=== PATIENT | male | born 1980 | race Caucasian/White ===

== ENCOUNTER 2019-06-16 21:01 | Inpatient (IN) ==
[2019-06-16] MEDS ORDERED: SODIUM CHLORIDE 0.9% 1000ML 2,000 ML IV ONE (21:09)
[2019-06-16] MEDS ORDERED: ONDANSETRON INJ 2 MG/ML 2 ML VIAL IV STA (21:16)
[2019-06-16 21:38] LABS: Basophils # (auto) 0.01 K/uL (0-0.2); Basophils % (auto) 0.1 %; Eosinophils # (auto) 0.02 K/uL (0-0.5); Eosinophils % (auto) 0.1 %; Hematocrit (blood only) 46.8 % (42-52); Immature Granulocytes # (auto) 0.06 K/uL (0.00-0.02); Immature Granulocytes % (auto) 0.3 %; Lymphocytes # (auto) 1.05 K/uL (1.2-3.4); Lymphocytes % (auto) 5.6 %; Mean Corpuscular Hemoglobin 29.8 pg (25-34); Mean Corpuscular Hgb Conc 34.2 g/dL (32-36); Mean Corpuscular Volume 87.2 fL (80-100); Mean Platelet Volume 9.9 fL (7.4-10.4); Monocytes # (auto) 1.01 K/uL (0.11-0.59); Monocytes % (auto) 5.4 %; Neutrophils # (auto) 16.63 K/uL (1.4-6.5); Neutrophils % (auto) 88.5 %; Platelet Count 277 K/uL (130-400); RDW Standard Deviation 44.5 fL (36.4-46.3); Red Blood Count 5.37 M/uL (4.7-6.1); White Blood Count 18.78 K/uL (4.8-10.8)
--- NOTE | 2019-06-16 21:38 | Emergency Department Note ---
Entered by Sandra Petersen acting as a scribe for History of Present Illness General Chief complaint: Hyperglycemia Stated complaint: UPSET STOMACH, DEHYDRATED, NAUSEA, 420 BLOOD SUGAR Time Seen by Provider: 06/16/19 21:09 Source: patient History of Present Illness Onset (ago): hour(s) (this morning) Location: head, upper extremity and lower extremity Pain Consistency: + other (episode) Maximum Pain Intensity: 8 Quality: + other (hyperglycemia) Associated symptoms: + other (Positive blood sugar of 420, dehydration, upset stomach. Negative urinary symptoms. ); no shortness of breath The patient is a 38 year old male who presents to the ED with complaints of hyperglycemia beginning this morning. He reports he took his blood sugar earlier today and it was 420. He notes he has nausea, vomiting and an upset stomach. The patient reports he feels dehydrated but denies any urinary symptoms or SOB. Home Medications Home Medications Medication Instructions Recorded Confirmed Type insulin NPH and regular human 20 unit SUBCUT BID 06/16/19 06/16/19 History [Novolin 70/30 U-100 Insulin] Allergies Allergy/AdvReac Type Severity Reaction Status Date / Time No Known Allergies Allergy Unverified 06/16/19 23:34 Past Med/Surg History Medical History (Updated 06/17/19 @ 04:09 by John Trujillo MD) Diabetes mellitus (Chronic) Surgical History No pertinent past surgical history Family History Other No pertinent family history in first degree relatives Social History Preferred Language: Maltese Communication Ability: Effective [employer] Required: No Beliefs That Will Affect Care: None Current Living Situation: Family Current Living Situation Comment: Lives with father Other Information That Helps Us Care for You: No Feels Safe at Home: Yes Safety Concerns: Feels Safe At This Time Smoking Status: Current every day smoker Tobacco Type: cigarettes ; Cigarettes Per Day: 1 PPD ; Do You Dip or Chew Tobacco: No ; Second Hand Exposure: Yes ; Tobacco Cessation Education Requested by Patient: No Hx Alcohol Use: Yes Alcohol type: beer Hx Substance Use: No Review of Systems See HPI for pertinent positives & negatives. and A total of 10 systems reviewed and were otherwise negative Physical Exam Vital Signs Vital Signs - 24 hr 06/16/19 21:04 06/16/19 21:29 06/16/19 21:32 Temperature 36.5 C Temperature Source Oral Pulse Rate 88 82 Pulse Rate [Apical] 107 H Pulse Rate from SpO2 Sensor Pulse Rhythm Regular Pulse Rhythm [Apical] Regular Respiratory Rate 20 18 24 Respiratory Effort / Characteristics Non-Labored Spontaneous Respiratory Depth Normal Shallow Respiratory Pattern Regular Blood Pressure 79/56 L 99/59 L Blood Pressure [Right Arm] Blood Pressure Mean 63 72 Blood Pressure Mean [Right Arm] Blood Pressure Position Sitting Pulse Oximetry 95 95 Oxygen Delivery Method Room Air Room Air Sepsis Recent Fever Within 48 Hours No Sepsis New/Unexplained Change in Mental Status No Sepsis Action Taken by Nursing No Action Required 06/16/19 21:40 06/16/19 22:00 06/16/19 22:01 Temperature Temperature Source Pulse Rate 71 83 80 Pulse Rate [Apical] 88 Pulse Rate from SpO2 Sensor Pulse Rhythm Pulse Rhythm [Apical] Regular Respiratory Rate 24 28 H 23 Respiratory Effort / Characteristics Non-Labored Spontaneous Respiratory Depth Normal Respiratory Pattern Regular Blood Pressure 99/59 L Blood Pressure [Right Arm] 99/59 L Blood Pressure Mean 68 Blood Pressure Mean [Right Arm] 72 Blood Pressure Position Pulse Oximetry Oxygen Delivery Method Sepsis Recent Fever Within 48 Hours Sepsis New/Unexplained Change in Mental Status Sepsis Action Taken by Nursing 06/16/19 22:30 06/16/19 22:37 06/16/19 23:00 Temperature Temperature Source Pulse Rate 90 77 67 Pulse Rate [Apical] Pulse Rate from SpO2 Sensor 72 Pulse Rhythm Pulse Rhythm [Apical] Respiratory Rate 17 15 24 Respiratory Effort / Characteristics Respiratory Depth Respiratory Pattern Blood Pressure 103/41 L 119/60 Blood Pressure [Right Arm] Blood Pressure Mean 71 74 Blood Pressure Mean [Right Arm] Blood Pressure Position Pulse Oximetry 98 Oxygen Delivery Method Sepsis Recent Fever Within 48 Hours Sepsis New/Unexplained Change in Mental Status Sepsis Action Taken by Nursing 06/16/19 23:20 06/16/19 23:30 Temperature Temperature Source Pulse Rate 78 78 Pulse Rate [Apical] Pulse Rate from SpO2 Sensor 77 Pulse Rhythm Pulse Rhythm [Apical] Respiratory Rate 19 Respiratory Effort / Characteristics Respiratory Depth Respiratory Pattern Blood Pressure Blood Pressure [Right Arm] Blood Pressure Mean Blood Pressure Mean [Right Arm] Blood Pressure Position Pulse Oximetry 96 Oxygen Delivery Method Sepsis Recent Fever Within 48 Hours Sepsis New/Unexplained Change in Mental Status Sepsis Action Taken by Nursing GENERAL: Patient is awake alert in no acute distress patient is resting comfortably and showing no signs of anxiety EYES: The conjunctivae are clear. The pupils are round and reactive. EARS, NOSE, MOUTH AND THROAT: The nose is without any evidence of any deformity. Mucous membranes are dry. NECK: The neck is nontender and supple. RESPIRATORY: Normal respiratory effort is noted there is no evidence of wheezing rhonchi or rales CARDIOVASCULAR: Tachycardic rate with regular rhythm was noted. GASTROINTESTINAL: The abdomen is mildly distended but soft. There was diffuse tenderness to palpation but no guarding or rigidity. MUSCULOSKELETAL/EXTREMITIES: There is no evidence of gross deformity full range of motion is noted in the hips and shoulders. SKIN: There is no obvious evidence of any rash. Skin was warm and dry. NEUROLOGIC: Patient is awake alert and oriented x3. Course Course 2114: Past medical records reviewed. The patient was evaluated in room B12. A complete history and physical exam was performed. 4: Discussed the patient's case with Dr. Perez, [facility]. The patient will be evaluated for further management. Administered Medications Dextrose (Dextrose 50%) 25 - 50 ml IV UD PRN; Protocol PRN Reason: Hypoglycemia Protocol Stop: 07/17/19 04:15 Last Admin: 06/17/19 04:05 Dose: 25 ml Documented by: [id number] Enoxaparin Sodium (Lovenox) 30 mg SQ QAM [facility] Stop: 07/17/19 08:59 Last Admin: 06/17/19 08:41 Dose: Not Given Documented by: [id number] Insulin Aspart ([facility]olog Flexpen) [facility]; Protocol Stop: 07/17/19 08:44 Last Admin: 06/17/19 17:36 Dose: 4 units Documented by: [id number] Cosigned by: [id number] Admin: 06/17/19 11:45 Dose: 8 units Documented by: [id number] Cosigned by: [id number] Admin: 06/17/19 11:36 Dose: 7 units Documented by: [id number] Cosigned by: [id number] Admin: 06/17/19 09:41 Dose: 6 units Documented by: [id number] Cosigned by: [id number] Insulin Human NPH (Novolin N Nph) 14 units SC BIDM [facility]; Protocol Stop: 07/17/19 08:29 Last Admin: 06/17/19 17:37 Dose: 14 units Documented by: [id number] Cosigned by: [id number] Admin: 06/17/19 08:41 Dose: 14 units Documented by: [id number] Cosigned by: [id number] Ioversol (Optiray 320 125ml) 125 ml IV ONCE PRN PRN Reason: Interaction Checking Stop: 06/21/19 00:18 Last Admin: 06/17/19 00:19 Dose: 117 ml Documented by: [id number] Discontinued Medications Dextrose (Dextrose 50%) Confirm Administered Dose 50 ml IV .STK-MED ONE Stop: 06/17/19 04:07 Last Admin: 06/17/19 04:44 Dose: Not Given Documented by: [id number] Sodium Chloride (Nss 1000ml) 2,000 mls @ 999 mls/hr IV .Q2H1M ONE Stop: 06/16/19 23:09 Last Infusion: 06/16/19 23:22 Dose: 0 mls/hr Documented by: [id number] Admin: 06/16/19 21:35 Dose: 999 mls/hr Documented by: [id number] Sodium Chloride (Nss 1000ml) 1,000 mls @ 999 mls/hr IV .Q1H1M ONE Stop: 06/16/19 23:21 Last Infusion: 06/16/19 23:42 Dose: 0 mls/hr Documented by: [id number] Admin: 06/16/19 22:50 Dose: 999 mls/hr Documented by: [id number] Insulin Human Regular 250 (units/ Sodium Chloride) 250 mls @ 2.1 mls/hr IV .Q24H CHARIS; Protocol Stop: 07/16/19 22:29 Last Titration: 06/17/19 08:04 Dose: 0 units/hr, 0 mls/hr Documented by: [id number] Cosigned by: [id number] Titration: 06/17/19 07:03 Dose: 2.1 units/hr, 2.1 mls/hr Documented by: [id number] Cosigned by: [id number] Titration: 06/17/19 05:59 Dose: 2.6 units/hr, 2.6 mls/hr Documented by: [id number] Cosigned by: [id number] Titration: 06/17/19 04:45 Dose: 2.6 units/hr, 2.6 mls/hr Documented by: [id number] Cosigned by: [id number] Titration: 06/17/19 04:00 Dose: 0 units/hr, 0 mls/hr Documented by: [id number] Cosigned by: [id number] Titration: 06/17/19 03:29 Dose: 4.3 units/hr, 4.3 mls/hr Documented by: [id number] Cosigned by: [id number] Titration: 06/17/19 02:52 Dose: 0 units/hr, 0 mls/hr Documented by: [id number] Cosigned by: [id number] Titration: 06/17/19 01:59 Dose: 7.2 units/hr, 7.2 mls/hr Documented by: [id number] Cosigned by: [id number] Titration: 06/17/19 01:10 Dose: 7.2 units/hr, 7.2 mls/hr Documented by: [id number] Cosigned by: [id number] Titration: 06/17/19 00:41 Dose: 7.2 units/hr, 7.2 mls/hr Documented by: [id number] Cosigned by: [id number] Admin: 06/16/19 23:02 Dose: 7.2 units/hr, 7.2 mls/hr Documented by: [id number] Cosigned by: [id number] Sodium Chloride (Nss 1000ml) 1,000 mls @ 200 mls/hr IV .Q5H CHARIS Stop: 07/17/19 00:49 Last Infusion: 06/17/19 04:54 Dose: 0 mls/hr Documented by: [id number] Infusion: 06/17/19 04:16 Dose: 0 mls/hr Documented by: [id number] Infusion: 06/17/19 03:38 Dose: 200 mls/hr Documented by: [id number] Admin: 06/17/19 01:15 Dose: 250 mls/hr Documented by: [id number] Cefoxitin Sodium 2,000 mg/ (Dextrose) 60 mls @ 100 mls/hr IV NOW STA Stop: 06/17/19 04:25 Last Admin: 06/17/19 04:53 Dose: Not Given Documented by: [id number] Dextrose/Sodium Chloride (D5w And Nss) 1,000 mls @ 100 mls/hr IV .Q10H CHARIS Stop: 07/17/19 04:29 Last Infusion: 06/17/19 08:49 Dose: 0 mls/hr Documented by: [id number] Admin: 06/17/19 04:05 Dose: 100 mls/hr Documented by: [id number] Magnesium Sulfate/Dextrose (Magnesium Sulfate / D5w) 1 gm in 100 mls @ 100 mls/hr IV ONE ONE Stop: 06/17/19 05:16 Last Infusion: 06/17/19 06:13 Dose: 0 mls/hr Documented by: [id number] Admin: 06/17/19 04:51 Dose: 100 mls/hr Documented by: [id number] Sodium Chloride (Nss 1000ml) 1,000 mls @ 100 mls/hr IV .Q10H CHARIS Stop: 06/17/19 18:29 Last Admin: 06/17/19 08:40 Dose: 100 mls/hr Documented by: [id number] Insulin Aspart (Novolog Flexpen) 0 units SC ACHS [facility]IS Stop: 07/17/19 07:29 Last Admin: 06/17/19 08:48 Dose: Not Given Documented by: [id number] Insulin Human Regular (Novolin R Bolus From Bag) 7 units IV ONE ONE Stop: 06/16/19 22:31 Last Admin: 06/16/19 23:02 Dose: 7 units Documented by: [id number] Cosigned by: [id number] Miscellaneous (Insulin Protocol Goal Range) 1 ea N/A ONE ONE Stop: 06/17/19 00:51 Last Admin: 06/17/19 00:59 Dose: 1 ea Documented by: [id number] Miscellaneous (Insulin Protocol Moderate Stress Level) 1 ea N/A ONE ONE Stop: 06/17/19 00:51 Last Admin: 06/17/19 00:59 Dose: Not Given Documented by: [id number] Ondansetron HCl (Zofran) 4 mg IV NOW STA Stop: 06/16/19 21:17 Last Admin: 06/16/19 21:35 Dose: 4 mg Documented by: [id number] Critical Care Time Critical Care Time: Yes Total Critical Care Time: 60 I have personally spent greater than 60 minutes of critical care time in the direct management of this patient. This includes bedside care, interpretation of diagnostic studies, and testing, discussion with consultants, patient, and family members, and other required patient management activities. This 60 minutes is in excess of all separately billable procedures. Medical Decision Making Differential Diagnosis Differential diagnosis: Etiologies such as metabolic, infection, hypo/hyperglycemia, electrolyte abnormalities, cardiac sources, intracerebral event, toxicologic, neurologic, as well as others were entertained. Medical Records Attestation: I reviewed the patient's medical records. Home Medications Current Medication List: was personally reviewed by me Laboratory Data Attestation: I reviewed the patient's lab results. Result diagrams: 06/17/19 05:19 06/17/19 05:19 Lab Results 06/16/19 06/16/19 06/16/19 Range/Units 21:07 21:24 21:24 WBC 18.78 H (4.8-10.8) K/uL RBC 5.37 (4.7-6.1) M/uL Hgb 16.0 (14.0-18.0) g/dL Hct 46.8 (42-52) % MCV 87.2 (80-100) fL MCH 29.8 (25-34) pg MCHC 34.2 (32-36) g/dL RDW Std Deviation 44.5 (36.4-46.3) fL RDW Coeff of Susy 14.0 (11.5-14.5) % Plt Count 277 (130-400) K/uL MPV 9.9 (7.4-10.4) fL Immature Gran % (Auto) 0.3 % Neut % (Auto) 88.5 % Lymph % (Auto) 5.6 % George % (Auto) 5.4 % Eos % (Auto) 0.1 % Baso % (Auto) 0.1 % Immature Gran # (Auto) 0.06 H (0.00-0.02) K/uL Neut # (Auto) 16.63 H (1.4-6.5) K/uL Lymph # (Auto) 1.05 L (1.2-3.4) K/uL George # (Auto) 1.01 H (0.11-0.59) K/uL Eos # (Auto) 0.02 (0-0.5) K/uL Baso # (Auto) 0.01 (0-0.2) K/uL PT 10.6 (9.0-12.0) Seconds INR 1.0 (0.9-1.1) APTT 21.9 (21.0-31.0) Seconds PTT Ratio 0.8 VBG pH (7.36-7.41) VBG pCO2 (38-50) mmHg VBG pO2 mmHg VBG HCO3 mmol/L VBG O2 Saturation % VBG Base Excess mEq/L Barometric Pressure mm/Hg Sodium (136-145) mmol/L Potassium (3.5-5.1) mmol/L Chloride (98-107) mmol/L Carbon Dioxide (21-32) mmol/L Anion Gap (3-11) BUN (7-18) mg/dl Creatinine (0.6-1.4) mg/dl Est Cr Clr Drug Dosing ml/min Est GFR ( Amer) Est GFR (Non-Af Amer) BUN/Creatinine Ratio (10-20) Glucose (70-99) mg/dl POC Glucose 421 H* (70-99) mg/dl Estimat Average Glucose mg/dl Hemoglobin A1c (4.5-5.6) % Lactate (0.4-2.0) mmol/L Calcium (8.5-10.1) mg/dl Magnesium (1.8-2.4) mg/dl Total Bilirubin (0.2-1) mg/dl AST (15-37) U/L ALT (12-78) U/L Alkaline Phosphatase (45-117) U/L Troponin I (0-0.045) ng/ml Total Protein (6.4-8.2) gm/dl Albumin (3.4-5.0) gm/dl Globulin (2.5-4.0) gm/dl Albumin/Globulin Ratio (0.9-2) Lipase (73-393) U/L Beta-Hydroxybutyric Acd (0.2-2.81) mg/dl Procalcitonin (0-0.5) ng/ml TSH (0.300-4.500) uIu/ml 06/16/19 06/16/19 06/16/19 Range/Units 21:24 21:24 21:24 WBC (4.8-10.8) K/uL RBC (4.7-6.1) M/uL Hgb (14.0-18.0) g/dL Hct (42-52) % MCV (80-100) fL MCH (25-34) pg MCHC (32-36) g/dL RDW Std Deviation (36.4-46.3) fL RDW Coeff of Susy (11.5-14.5) % Plt Count (130-400) K/uL MPV (7.4-10.4) fL Immature Gran % (Auto) % Neut % (Auto) % Lymph % (Auto) % George % (Auto) % Eos % (Auto) % Baso % (Auto) % Immature Gran # (Auto) (0.00-0.02) K/uL Neut # (Auto) (1.4-6.5) K/uL Lymph # (Auto) (1.2-3.4) K/uL George # (Auto) (0.11-0.59) K/uL Eos # (Auto) (0-0.5) K/uL Baso # (Auto) (0-0.2) K/uL PT (9.0-12.0) Seconds INR (0.9-1.1) APTT (21.0-31.0) Seconds PTT Ratio VBG pH (7.36-7.41) VBG pCO2 (38-50) mmHg VBG pO2 mmHg VBG HCO3 mmol/L VBG O2 Saturation % VBG Base Excess mEq/L Barometric Pressure mm/Hg Sodium 129 L (136-145) mmol/L Potassium 5.0 (3.5-5.1) mmol/L Chloride 93 L (98-107) mmol/L Carbon Dioxide 16 L (21-32) mmol/L Anion Gap 21.0 H (3-11) BUN 17 (7-18) mg/dl Creatinine 1.28 (0.6-1.4) mg/dl Est Cr Clr Drug Dosing 82.2 ml/min Est GFR ( Amer) 82.9 Est GFR (Non-Af Amer) 71.5 BUN/Creatinine Ratio 13.2 (10-20) Glucose 459 H* (70-99) mg/dl POC Glucose (70-99) mg/dl Estimat Average Glucose 315 mg/dl Hemoglobin A1c 12.6 H (4.5-5.6) % Lactate (0.4-2.0) mmol/L Calcium 10.0 (8.5-10.1) mg/dl Magnesium 1.7 L (1.8-2.4) mg/dl Total Bilirubin 1.2 H (0.2-1) mg/dl AST 25 (15-37) U/L ALT 31 (12-78) U/L Alkaline Phosphatase 114 (45-117) U/L Troponin I 0.817 H* (0-0.045) ng/ml Total Protein 8.0 (6.4-8.2) gm/dl Albumin 4.5 (3.4-5.0) gm/dl Globulin 3.5 (2.5-4.0) gm/dl Albumin/Globulin Ratio 1.3 (0.9-2) Lipase 48 L (73-393) U/L Beta-Hydroxybutyric Acd 79.36 H (0.2-2.81) mg/dl Procalcitonin < 0.05 (0-0.5) ng/ml TSH 3.370 (0.300-4.500) uIu/ml 06/16/19 06/16/19 06/16/19 Range/Units 21:26 21:40 22:54 WBC (4.8-10.8) K/uL RBC (4.7-6.1) M/uL Hgb (14.0-18.0) g/dL Hct (42-52) % MCV (80-100) fL MCH (25-34) pg MCHC (32-36) g/dL RDW Std Deviation (36.4-46.3) fL RDW Coeff of Susy (11.5-14.5) % Plt Count (130-400) K/uL MPV (7.4-10.4) fL Immature Gran % (Auto) % Neut % (Auto) % Lymph % (Auto) % George % (Auto) % Eos % (Auto) % Baso % (Auto) % Immature Gran # (Auto) (0.00-0.02) K/uL Neut # (Auto) (1.4-6.5) K/uL Lymph # (Auto) (1.2-3.4) K/uL George # (Auto) (0.11-0.59) K/uL Eos # (Auto) (0-0.5) K/uL Baso # (Auto) (0-0.2) K/uL PT (9.0-12.0) Seconds INR (0.9-1.1) APTT (21.0-31.0) Seconds PTT Ratio VBG pH 7.32 L (7.36-7.41) VBG pCO2 40 (38-50) mmHg VBG pO2 43 mmHg VBG HCO3 20 mmol/L VBG O2 Saturation 73.1 % VBG Base Excess -5.5 mEq/L Barometric Pressure 735.9 mm/Hg Sodium (136-145) mmol/L Potassium (3.5-5.1) mmol/L Chloride (98-107) mmol/L Carbon Dioxide (21-32) mmol/L Anion Gap (3-11) BUN (7-18) mg/dl Creatinine (0.6-1.4) mg/dl Est Cr Clr Drug Dosing ml/min Est GFR ( Amer) Est GFR (Non-Af Amer) BUN/Creatinine Ratio (10-20) Glucose (70-99) mg/dl POC Glucose 345 H* (70-99) mg/dl Estimat Average Glucose mg/dl Hemoglobin A1c (4.5-5.6) % Lactate 2.3 H* (0.4-2.0) mmol/L Calcium (8.5-10.1) mg/dl Magnesium (1.8-2.4) mg/dl Total Bilirubin (0.2-1) mg/dl AST (15-37) U/L ALT (12-78) U/L Alkaline Phosphatase (45-117) U/L Troponin I (0-0.045) ng/ml Total Protein (6.4-8.2) gm/dl Albumin (3.4-5.0) gm/dl Globulin (2.5-4.0) gm/dl Albumin/Globulin Ratio (0.9-2) Lipase (73-393) U/L Beta-Hydroxybutyric Acd (0.2-2.81) mg/dl Procalcitonin (0-0.5) ng/ml TSH (0.300-4.500) uIu/ml Imaging Data Radiologist's Impression: Radiology results as stated below per my review and the radiologist's interpretation: KUB HISTORY: vomiting COMPARISON: None. FINDINGS: The bowel gas pattern is unremarkable. There are no dilated loops of small bowel to suggest an obstruction. No renal calculi. No ureteral calculi. No pneumoperitoneum or pneumatosis. IMPRESSION: Unremarkable KUB. ACT 112: Negative or not required by law. Electronically signed by: Brent Downs M.D. 06/16/2019 10:12 PM XR chest 1V portable HISTORY: weakness COMPARISON: None. FINDINGS: The lungs are clear. Cardiac silhouette is normal in size. No pleural effusions. No pneumothorax. IMPRESSION: No acute process. ACT 112: Negative or not required by law. Electronically signed by: Brent Downs M.D. 06/16/2019 10:11 PM ECG Data Attestation: I personally reviewed and interpreted this ECG as follows: Indication: + other (hyperglycemia) Rate (beats per minute): 84 Rhythm: + normal sinus ECG ST segments: no ST depression and no ST elevation ECG Findings: + Other (peaked T-waves are noted); no PACs and no PVCs Comparison ECG Date: no prior available Blood Pressure Blood Pressure Findings: Low blood pressure Blood Pressure Disposition: further management by hospitalist MDM Narrative The patient is a 38-year-old male who presented to the emergency department for an evaluation of nausea and vomiting. The patient was noted to have elevated blood sugar as an outpatient and presented to the emergency department for further evaluation. The patient has a history of insulin-dependent diabetes. He was found to have signs of DKA based on his laboratory studies. The patient was treated with IV fluids as well as insulin drip after his basic metabolic panel was returned. I discussed the patient's laboratory and radiographic studies with him. He was treated with IV fluids and IV antiemetics. He was also started on IV insulin. The patient did have upper abdominal pain to palpation. He did not have an acute surgical abdomen on physical exam. On subsequent reevaluation he was feeling much better. I discussed the patient's condition with the on-call [facility] hospitalist group. They have agreed to evaluate the patient in the emergency department for further management and disposition. Impression & Plan DKA (diabetic ketoacidoses), Hyperglycemia, Nausea & vomiting, Elevated troponin Discharge Plan Visit Data *Final* Discharge Date/Time: 06/17/19 00:35 Chief Complaint: Hyperglycemia Stated Complaint: UPSET STOMACH, DEHYDRATED, NAUSEA, 420 BLOOD SUGAR ED Provider: Gabriele Albarado Discharge Problem: DKA (diabetic ketoacidoses), Hyperglycemia, Nausea & vomiting, Elevated troponin Patient Disposition: Admitted As Inpatient Discharge Problem: Nausea & vomiting Qualifiers: Vomiting type: unspecified Vomiting Intractability: non-intractable Qualified Code(s): R11.2 - Nausea with vomiting, unspecified The scribe's documentation has been prepared under my direction and personally reviewed by me in its entirety. I confirm that the note above accurately re flects all work, treatment, procedures, and medical decision making performed by me.
[2019-06-16 21:44] LABS: Base Excess VBG -5.5 mEq/L; Oxygen Saturation VBG 73.1 %; pH VBG 7.32 (7.36-7.41)
[2019-06-16 21:48] LABS: Partial Thromboplastin Ratio 0.8; Partial Thromboplastin Time 21.9 Seconds (21.0-31.0); Prothrombin Time 10.6 Seconds (9.0-12.0)
--- NOTE | 2019-06-16 22:12 | XRay Report ---
XR chest 1V portable HISTORY: weakness COMPARISON: None. FINDINGS: The lungs are clear. Cardiac silhouette is normal in size. No pleural effusions. No pneumot horax. IMPRESSION: No acute process. ACT 112: Negative or not required by law. Electronically signed by: Brent Downs M.D. 06/16/2019 10:11 PM
--- NOTE | 2019-06-16 22:13 | XRay Report ---
KUB HISTORY: vomiting COMPARISON: None. FINDINGS: The bowel gas pattern is unremarkable. There are no dilated loops of small bowel to suggest an obstruction. No renal calculi. No ureteral calculi. No pneumoperitoneum or pneumatosis. IMPRESSION: Unremarkable KUB. ACT 112: Negative or not required by law. Electronically signed by: Brent Downs M.D. 06/16/2019 10:12 PM
[2019-06-16 22:16] LABS: Albumin Globulin Ratio 1.3 (0.9-2); Albumin Level 4.5 gm/dl (3.4-5.0); BUN Creatinine Ratio 13.2 (10-20); Bilirubin,Total 1.2 mg/dl (0.2-1); Creatinine Clr Calc Pharmacy 82.2 ml/min; Est GFR (African American) 82.9; Est GFR (Non-African American) 71.5; Globulin 3.5 gm/dl (2.5-4.0); Troponin I 0.817 ng/ml (0-0.045)
[2019-06-16] MEDS ORDERED: ED DKA INSULIN DRIP ONE (22:18)
[2019-06-16] MEDS ORDERED: SODIUM CHLORIDE 0.9% 1000ML 1,000 ML IV ONE (22:21)
[2019-06-16] MEDS ORDERED: INSULIN REGULAR 250 UNITS in SODIUM CHLORIDE 0.9% 247.5 ML IV SCH (22:30)
[2019-06-16] MEDS ORDERED: DEXTROSE 50% 50 ML SYRINGE IV PRN (22:30)
[2019-06-16] MEDS ORDERED: GLUCOSE 10 TABS/TUBE PO PRN (22:30)
[2019-06-16] MEDS ORDERED: CARBOHYDRATES FOR HYPOGLYCEMIA PO PRN (22:30)
[2019-06-16] MEDS ORDERED: GLUCOSE 40% GEL 15 GM TUBE PO PRN (22:30)
[2019-06-16] MEDS ORDERED: NovoLIN-R BOLUS FROM BAG IV ONE (22:30)
[2019-06-16] MEDS ORDERED: GLUCAGON FOR INJ 1 MG VIAL IM PRN (22:30)
[2019-06-16 22:32] LABS: Beta-Hydroxybutyrate 79.36 mg/dl (0.2-2.81)
[2019-06-16 23:22] LABS: Magnesium 1.7 mg/dl (1.8-2.4); Thyroid Stimulating Hormone 3.37 uIu/ml (0.300-4.500)
--- NOTE | 2019-06-16 23:34 | History & Physical Report ---
Date of Service June 16, 2019 Assessment & Plan (1) DKA (diabetic ketoacidoses): Suboptimal control as of recent outpatient hemoglobin A1c of 26 October 2018 ? 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 Medical history significant for DM 1, ongoing tobacco abuse. 2 days history of upset stomach, with nausea and emesis. No fever, some chills. Good BM. Poor appetite. No chest pain, No cough. A little short of breath. Blood sugar noted to be 400s at home which is higher than usual 200s as per patient. IVF, IV insulin started at the ER for DKA. Medical History as above Surgical History : Lipoma removal Family History : Hypertension Personal/Social history : Half pack daily, occasional EtOH intake, plastic bag supplier employee Allergies Allergy/AdvReac Type Severity Reaction Status Date / Time No Known Allergies Allergy Unverified 06/16/19 23:34 Home Medications Home Medications Medication Instructions Recorded Confirmed Type insulin NPH and regular human 20 unit SUBCUT BID 06/16/19 06/16/19 History [Novolin 70/30 U-100 Insulin] Past Med/Surg History Medical History (Updated 06/17/19 @ 04:09 by John Trujillo MD) Diabetes mellitus (Chronic) Surgical History No pertinent past surgical history Family History Other No pertinent family history in first degree relatives Social History Preferred Language: Hebrew Communication Ability: Effective Hook Puller Required: No Beliefs That Will Affect Care: None Current Living Situation: Family Current Living Situation Comment: Lives with father Other Information That Helps Us Care for You: No Feels Safe at Home: Yes Safety Concerns: Feels Safe At This Time Smoking Status: Current every day smoker Tobacco Type: cigarettes ; Cigarettes Per Day: 1 PPD ; Do You Dip or Chew Tobacco: No ; Second Hand Exposure: Yes ; Tobacco Cessation Education Requested by Patient: No Hx Alcohol Use: Yes Alcohol type: beer Hx Substance Use: No Review of Systems Review of Systems: As per HPI, all 10 systems reviewed, all other ROS negative Physical Exam Physical Exam: GENERAL: Slightly uncomfortable, episodic lethargy, looks older than stated age, no respiratory distress SKIN: Normal color, warm HEENT: [place] palpebral conjunctivae, no ptosis, dry buccal mucosa NECK : Supple, no tenderness CHEST : Decreased breath sounds, no tenderness HEART : RRR, no obvious murmurs ABDOMEN: Some distention, minimal hypogastric tenderness EXTREMITIES : No LE swelling/tenderness, no other conspicuous deformities noted NEUROLOGIC : Coherent, episodic lethargy, no facial asymmetry, no other gross focality Results & Data Vital Signs (Past 12 Hours) Vital Signs Temp Pulse Pulse Resp BP BP Pulse Ox 06/16/19 22:00 88 14 99/59 L 06/16/19 21:29 107 H 18 95 06/16/19 21:04 36.5 C 88 20 79/56 L 95 Laboratory Results Laboratory Results WBC 18.78 K/uL (4.8-10.8) H 06/16/19 21:24 RBC 5.37 M/uL (4.7-6.1) 06/16/19 21:24 Hgb 16.0 g/dL (14.0-18.0) 06/16/19 21:24 Hct 46.8 % (42-52) 06/16/19 21:24 MCV 87.2 fL (80-100) 06/16/19 21:24 MCH 29.8 pg (25-34) 06/16/19 21:24 MCHC 34.2 g/dL (32-36) 06/16/19 21:24 RDW Std Deviation 44.5 fL (36.4-46.3) 06/16/19 21:24 RDW Coeff of Susy 14.0 % (11.5-14.5) 06/16/19 21:24 Plt Count 277 K/uL (130-400) 06/16/19 21:24 MPV 9.9 fL (7.4-10.4) 06/16/19 21:24 Immature Gran % (Auto) 0.3 % 01/29/20 21:24 Neut % (Auto) 88.5 % 06/16/19 21:24 Lymph % (Auto) 5.6 % 06/16/19 21:24 Love % (Auto) 5.4 % 06/16/19 21:24 Eos % (Auto) 0.1 % 06/16/19 21:24 Baso % (Auto) 0.1 % 06/16/19 21: Immature Gran # (Auto) 0.06 K/uL (0.00-0.02) H 06/16/19 21:24 Neut # (Auto) 16.63 K/uL (1.4-6.5) H 06/16/19 21:24 Lymph # (Auto) 1.05 K/uL (1.2-3.4) L 06/16/19 21:24 Love # (Auto) 1.01 K/uL (0.11-0.59) H 06/16/19 21:24 Eos # (Auto) 0.02 K/uL (0-0.5) 06/16/19 21: Baso # (Auto) 0.01 K/uL (0-0.2) 06/16/19 21: PT 10.6 Seconds (9.0-12.0) 06/16/19 21: INR 1.0 (0.9-1.1) 06/16/19 21: APTT 21.9 Seconds (21.0-31.0) 06/16/19: PTT Ratio 0.8 06/16/19 21: VBG pH 7.32 (7.36-7.41) L 06/16/19 21: VBG pCO2 40 mmHg (38-50) 06/16/19 21: VBG pO2 43 mmHg 06/16/19 21: VBG HCO3 20 mmol/L 06/16/19: VBG O2 Saturation 73.1 % 06/16/19: VBG Base Excess -5.5 mEq/L 06/16/19 21: Barometric Pressure 735.9 mm/Hg 06/16/19 21: Sodium 129 mmol/L (136-145) L 06/16/19 21: Potassium 5.0 mmol/L (3.5-5.1) 06/16/19 21:24 Chloride 93 mmol/L (98-107) L 06/16/19 21:24 Carbon Dioxide 16 mmol/L (21-32) L 06/16/19 21:24 Anion Gap 21.0 (3-11) H 06/16/19 21:24 BUN 17 mg/dl (7-18) 06/16/19 21:24 Creatinine 1.28 mg/dl (0.6-1.4) 06/16/19 21:24 Est Cr Clr Drug Dosing 82.2 ml/min 06/16/19 21:24 Est GFR ( Amer) 82.9 06/16/19 21:24 Est GFR (Non-Af Amer) 71.5 06/16/19 21:24 BUN/Creatinine Ratio 13.2 (10-20) 06/16/19 21:24 Glucose 459 mg/dl (70-99) H* 06/16/19 21:24 POC Glucose 345 mg/dl (70-99) H* 06/16/19 22:54 Lactate 2.3 mmol/L (0.4-2.0) H* 06/16/19 21:40 Calcium 10.0 mg/dl (8.5-10.1) 06/16/19 21:24 Magnesium 1.7 mg/dl (1.8-2.4) L 06/16/19 21:24 Total Bilirubin 1.2 mg/dl (0.2-1) H 06/16/19 21:24 AST 25 U/L (15-37) 06/16/19 21:24 ALT 31 U/L (12-78) 06/16/19 21:24 Alkaline Phosphatase 114 U/L (45-117) 06/16/19 21:24 Troponin I 0.817 ng/ml (0-0.045) H* 06/16/19 21:24 Total Protein 8.0 gm/dl (6.4-8.2) 06/16/19 21:24 Albumin 4.5 gm/dl (3.4-5.0) 06/16/19 21:24 Globulin 3.5 gm/dl (2.5-4.0) 06/16/19 21:24 Albumin/Globulin Ratio 1.3 (0.9-2) 06/16/19 21:24 Lipase 48 U/L (73-393) L 06/16/19 21:24 Beta-Hydroxybutyric Acd 79.36 mg/dl (0.2-2.81) H 06/16/19 21:24 Procalcitonin < 0.05 ng/ml (0-0.5) 06/16/19 21:24 TSH 3.370 uIu/ml (0.300-4.500) 06/16/19 21:24 Diagnostic Findings Chest x-ray : No acute process KUB: Unremarkable EKG as per my interpretation :Rate 85, NSR, normal axis, RAD, no ischemia
[2019-06-17] MEDS ORDERED: OPTIRAY 320 125ml IV PRN (00:19)
[2019-06-17] MEDS ORDERED: MODERATE STRESS LEVEL ONE (00:50)
[2019-06-17] MEDS ORDERED: PROMETHAZINE HCL 12.5 MG in SODIUM CHLORIDE 0.9% 50 ML IV PRN (00:50)
[2019-06-17] MEDS ORDERED: OXYCODONE HCL IR 5 MG TAB (IMMEDIATE RELEASE) PO PRN (00:50)
[2019-06-17] MEDS ORDERED: INSULIN PROTOCOL GOAL RANGE ONE (00:50)
[2019-06-17] MEDS ORDERED: INSULIN REGULAR 250 UNITS in SODIUM CHLORIDE 0.9% 247.5 ML IV SCH (00:50)
[2019-06-17] MEDS ORDERED: SODIUM CHLORIDE 0.9% 1000ML 1,000 ML IV SCH ×2 (00:50→08:30)
[2019-06-17] MEDS ORDERED: NITROGLYCERIN SL 0.4 MG/TAB TAB SL PRN (00:50)
[2019-06-17 00:51] LABS: BUN Creatinine Ratio 16.1 (10-20); Calcium 8.5 mg/dl (8.5-10.1); Creatinine Clr Calc Pharmacy 90.7 ml/min; Est GFR (African American) 93.4; Est GFR (Non-African American) 80.6; Potassium 4.4 mmol/L (3.5-5.1); Troponin I 0.704 ng/ml (0-0.045)
[2019-06-17] MEDS ORDERED: D5W AND NSS 1,000 ML IV PRN (00:54)
[2019-06-17 01:14] LABS: Appearance Urine Clear (Clear); Bilirubin Urine Negative (Negative); Blood Urine Negative (Negative); Color Urine Yellow; Glucose Urine UA 3+ (Negative); Leukocyte Esterase Urine Negative (Negative); Nitrite Urine Negative (Negative); Protein Urine Negative (Negative); Specific Gravity Urine > 1.045 (1.000-1.030); Urobilinogen Urine Negative (Negative)
[2019-06-17 01:17] LABS: Ketones Urine 4+ (Negative)
[2019-06-17 01:23] LABS: Beta-Hydroxybutyrate 61.18 mg/dl (0.2-2.81)
[2019-06-17] MEDS ORDERED: cefOXitin 2,000 MG in DEXTROSE 5% 50 ML IV STA (03:50)
[2019-06-17] MEDS ORDERED: DEXTROSE 50% 50 ML SYRINGE IV ONE (04:06)
--- NOTE | 2019-06-17 04:11 | Surgery Consultation ---
Date of Consultation June 17, 2019 Assessment & Plan (1) Fluid filled abdomen: Reviewed the CAT scan which showed some fluid in the abdomen and nonvisualization of the appendix Clinically the patient does not have appendicitis at this time he has no abdominal issues the fluid it was related to the abdomen seen by CAT scan may been associated to his pathology and physiology related to DKA and abdominal discomfort that he had yesterday My findings were discussed with Dr. Sanchez including the fact that the patient would like something to drink and I will leave those decisions up to him Thank you for allowing us to participate in care of your patient will be available if further issues arise Present on Admission?: Yes History of Present Illness Reason for Consultation: Possible appendicitis Requesting Physician: Dr. Sanchez Attending Physician: Avtar Bhatt MD History of Present Illness I was called by Dr. Sanchez at approximately 330 this morning to see the patient for possible appendicitis The patient had to the ER late evening and with a downtime early this morning CT scan report was seen Showing some fluid in the pelvis and on base of the appendix CT scan was with non-oral contrast As I see the patient this morning he was asleep easily awoke feeling fine without any belly pains He stated yesterday he has some belly pain but it was throughout the belly and not in any specific area Allergies Allergy/AdvReac Type Severity Reaction Status Date / Time No Known Allergies Allergy Unverified 06/16/19 23:34 Home Medications Home Medications Medication Instructions Recorded Confirmed Type Novolin 70/30 U-100 Insulin 24 unit SUBCUT BID #0 ml 06/17/19 06/16/19 Rx Patient History Medical History (Updated 06/17/19 @ 04:09 by John Trujillo MD) Diabetes mellitus (Chronic) Surgical History No pertinent past surgical history Family History Other No pertinent family history in first degree relatives Social History Preferred Language: Azeri Communication Ability: Effective Wire Brush Maker Required: No Beliefs That Will Affect Care: None Current Living Situation: Family Current Living Situation Comment: Lives with father Other Information That Helps Us Care for You: No Feels Safe at Home: Yes Safety Concerns: Feels Safe At This Time Smoking Status: Current every day smoker Tobacco Type: cigarettes ; Cigarettes Per Day: 1 PPD ; Do You Dip or Chew Tobacco: No ; Second Hand Exposure: Yes ; Tobacco Cessation Education Requested by Patient: No Hx Alcohol Use: Yes Alcohol type: beer Hx Substance Use: No Physical Exam Physical Exam: Patient is alert when awakened in no acute distress which is like something to drink The abdomen is completely benign there is no localized tenderness anywhere Results & Data Vital Signs (Past 12 Hours) Vital Signs Temp Pulse Pulse Resp BP BP Pulse Ox 06/17/19 00:00 71 20 97 06/16/19 23:30 78 19 96 06/16/19 23:00 67 24 119/60 98 06/16/19 22:37 77 15 103/41 L 06/16/19 22:30 90 17 06/16/19 22:01 80 23 06/16/19 22:00 83 88 28 H 99/59 L 99/59 L 06/16/19 21:40 71 24 06/16/19 21:32 82 24 99/59 L 06/16/19 21:29 107 H 18 95 06/16/19 21:04 36.5 C 88 20 79/56 L 95 PG Care Time/CCT Total # of Minutes Spent Total Time Spent with Patient: Total time spent is greater than 50% in coordination of care (as documented) at patient's floor/unit and/or counseling patient: Coding Level of Care Code 96067 Inpt Consult Level 3 Diagnoses Fluid filled abdomen R18.8
[2019-06-17] MEDS ORDERED: DEXTROSE 50% 50 ML SYRINGE IV PRN (04:16)
[2019-06-17] MEDS ORDERED: GLUCOSE 40% GEL 15 GM TUBE PO PRN (04:16)
[2019-06-17] MEDS ORDERED: GLUCAGON FOR INJ 1 MG VIAL SQ PRN (04:16)
[2019-06-17] MEDS ORDERED: GLUCOSE 10 TABS/TUBE PO PRN (04:16)
[2019-06-17] MEDS ORDERED: CARBOHYDRATES FOR HYPOGLYCEMIA PO PRN (04:16)
[2019-06-17] MEDS ORDERED: MAGNESIUM SULFATE / D5W 1 GM/100 ML BAG IV ONE (04:17)
[2019-06-17] MEDS ORDERED: D5W AND NSS 1,000 ML IV SCH (04:30)
[2019-06-17 05:54] LABS: Estimated Average Glucose 315 mg/dl; Hemoglobin A1C 12.6 % (4.5-5.6)
--- NOTE | 2019-06-17 06:22 | CT Scan Report ---
CT angio chest PE protocol CT DOSE: HISTORY: Chest pain PE TECHNIQUE: Multiaxial CT images of the chest were performed following the intravenous administration of contrast to evaluate the pulmonary arteries. Maximal intensity projection images were also obtaine d. A dose lowering technique was utilized adhering to the principles of ALARA. COMPARISON STUDY: None. FINDINGS: There is a normal caliber thoracic aorta with no evidence for dissection. There is no evide nce for pulmonary embolus. No pleural effusions. No pneumothorax. The liver and spleen are unremarkab le. No mediastinal or hilar lymphadenopathy. The central airways are patent. The lungs are clear. IMPRESSION: No evidence for pulmonary embolus. The lungs are clear ACT 112: Negative or not required by law. The above report was generated using voice recognition software. It may contain grammatical, syntax or spelling errors. Electronically signed by: Romeo Lebron M.D. 06/17/2019 6:20 AM
[2019-06-17 06:28] LABS: Basophils # (auto) 0.01 K/uL (0-0.2); Basophils % (auto) 0.1 %; Eosinophils # (auto) 0.02 K/uL (0-0.5); Eosinophils % (auto) 0.2 %; Hemoglobin 13.6 g/dL (14.0-18.0); Immature Granulocytes # (auto) 0.02 K/uL (0.00-0.02); Immature Granulocytes % (auto) 0.2 %; Lymphocytes # (auto) 2.12 K/uL (1.2-3.4); Lymphocytes % (auto) 20.7 %; Mean Corpuscular Hemoglobin 28.7 pg (25-34); Mean Corpuscular Hgb Conc 33.2 g/dL (32-36); Mean Corpuscular Volume 86.5 fL (80-100); Mean Platelet Volume 9.5 fL (7.4-10.4); Monocytes # (auto) 0.65 K/uL (0.11-0.59); Monocytes % (auto) 6.4 %; Neutrophils # (auto) 7.41 K/uL (1.4-6.5); Neutrophils % (auto) 72.4 %; Platelet Count 261 K/uL (130-400); RDW Standard Deviation 43.9 fL (36.4-46.3); Red Blood Count 4.74 M/uL (4.7-6.1); White Blood Count 10.23 K/uL (4.8-10.8)
--- NOTE | 2019-06-17 06:44 | CT Scan Report ---
ABDOMEN AND PELVIS CT WITH IV CONTRAST CT DOSE: 632.40 mGy.cm HISTORY: Acute generalized abdominal pain abd pain TECHNIQUE: Multiaxial CT images of the abdomen and pelvis were performed following the IV administrat ion of 117 cc of Optiray 320, A dose lowering technique was utilized adhering to the principles of A ROD. COMPARISON STUDY: CTA of the chest of same day FINDINGS: Clear lung bases. There is no pneumatosis or pneumoperitoneum identified. Imaged inferior cardiac karla mbers are unremarkable. Spleen, visualized pancreas, adrenal glands, gallbladder and liver appear unr emarkable. Patency of the hepatic and portal veins. Kidneys, ureters and urinary bladder are unremark able. Study is limited secondary to lack of enteric contrast and paucity of intra-abdominal fat. Aort a and IVC are unremarkable. No adenopathy identified. No bowel obstruction. There is mild wall thickening of the ascending colon, hepatic flexure and proxi mal transverse colon with partial distention. The appendix is not diagnostically visualized. There ar e a few scattered fluid-filled loops of nondilated small bowel noted. Trace free fluid within the abd omen and pelvis with mild mesenteric edema. Soft tissues are unremarkable. The bones appear intact. IMPRESSION: 1. No bowel obstruction. 2. Nonvisualization of the appendix. 3. Mild wall thickening of the ascending colon, hepatic flexure and proximal transverse colon may be secondary to partial distention versus a mild nonspecific colitis. 4. Trace free fluid within the abdomen and pelvis. ACT 112: Negative or not required by law. The above report was generated using voice recognition software. It may contain grammatical, syntax o r spelling errors. Electronically signed by: Won Toro M.D. 06/17/2019 6:42 AM
[2019-06-17 07:10] LABS: BUN Creatinine Ratio 14.5 (10-20); Creatinine Clr Calc Pharmacy 95.6 ml/min; Est GFR (African American) 99.6; Est GFR (Non-African American) 85.9; Potassium 4.3 mmol/L (3.5-5.1)
[2019-06-17] MEDS ORDERED: INSULIN ASPART 100 UNITS/ML 3 ML PEN SC SCH ×2 (07:30)
[2019-06-17] MEDS ORDERED: PHARMACY GLYCEMIC MGMT CONSULT SCH (08:18)
[2019-06-17] MEDS: INSULIN HUMAN NPH SC SCH ×2 (08:41→17:37)
[2019-06-17] MEDS ORDERED: ENOXAPARIN INJ 30 MG/0.3 ML SYR SQ SCH (09:00)
--- NOTE | 2019-06-17 09:14 | Pharmacy Report ---
Glycemic Control Consultation - Date of Service June 17, 2019 - Scope Scope: Glycemic Pharmacist consulted by Dr Bhatt on 06/17/19 for glycemic control and to write orders per [facility] inpatient glycemic control protocol - Objective Weight: 72.8 kg Accuchecks BSG (last 24hrs): 06/16/19 06/16/19 06/16/19 21:07 21:24 22:54 Glucose 459 H* POC Glucose 421 H* 345 H* 06/16/19 06/17/19 06/17/19 23:51 00:17 00:58 Glucose 325 H* POC Glucose 326 H* 278 H 06/17/19 06/17/19 06/17/19 01:59 02:52 04:00 Glucose POC Glucose 234 H 158 H 99 06/17/19 06/17/19 06/17/19 04:24 04:40 05:19 Glucose 159 H POC Glucose 142 H 158 H 06/17/19 06/17/19 06/17/19 05:57 06:58 07:57 Glucose POC Glucose 154 H 140 H 118 H Laboratory Data (last 24hrs): 06/16/19 06/17/19 06/17/19 21:24 00:17 05:19 Potassium 5.0 4.4 4.3 Carbon Dioxide 16 L 18 L 25 Anion Gap 21.0 H 14.0 H 7.0 Creatinine 1.28 1.16 1.10 Est Cr Clr Drug Dosing 82.2 90.7 95.6 Beta-Hydroxybutyric Acd 79.36 H 61.18 H HbA1c: Hemoglobin A1c 12.6 % (4.5-5.6) H 06/16/19 21:24 - Recent Pertinent Medications Outpatient Anti-diabetic Regimen: * Novolin 70/30 - 15-20 units BID * Patient works 12 hour shifts, and when he does will take an additional 10- 12 units at lunchtime * A1c = 12.6 % 06/16/19 The patient is currently receiving: * Insulin drip running at an average of 2.1-2.6units/hr past 6 hours - Assessment & Plan Assessment & Plan: ASSESSMENT: * 38 year old male type 1 diabetic admitted with N/V, hyperglycemia, anion gap closed, blood sugars at goal with insulin drip running average fo 2.1units/hrs with 30 min holds, consistent with home dose of insulin 40units/day. * Patient was NPO for surgery consult, no appendicitis, no surgery planned, starting Type 1 diet this morning at breakfast, well tolerated. * Note: pt ate breakfast and was finished at 830am, Novolog not given until 941am, then blood sugar drawn at 11:13am = 332mg/dl. Hyperglycemia d/t late coverage of carbohydrates at breakfast and early BSG check for lunch. * Recheck of BSG at 1525 = 85mg/dl * Outpatient regimen is premixed basal/prandial insulin of Novolin 70/30 mix insulin. * Pre-mixed insulin is difficult to titrate since it is already in a fixed distribution of basal:prandial insulin. Continuing pre-mixed insulin for admission typically lead to hypoglycemia d/t changing PO status but rapid acting insulin is unable to be held. * Home regimen will be held for admission per pharmacy consult. Will utilize recommended regimen of SQ basal bolus insulin regimen with NPH + NovoLog (CF+CR), will continue basal of NPH so that can easily transition back to home mixed insulin. * Met with patient and he is aware of what we are using as inpatient for easy transition to home regimen for discharge. PLAN FOR INPATIENT GLYCEMIC CONTROL: * Discontinue IV insulin drip (on hold per drip calculator) * Basal insulin * NPH - 14 units SQ BID with meals * Bolus insulin * NovoLog per scale ACHS or Q6hrs while NPO * Goal Range: Low 110 mg/dL - High 140 mg/dL * Correction Factor: 30 mg/dL/unit * Nutritional / Prandial insulin per carb ratio of 1 unit per 10 grams CHO consumed * Please note that the plan above was derived based on current level of insulin resistance and hospital stress. These recommendations are appropriate for inpatient admission only. Plan of care upon discharge will need to be reassessed to avoid potential outpatient hypo/hyperglycemia. Thank you.
[2019-06-17] MEDS: INSULIN ASPART 100 UNITS/ML 3 ML PEN SC SCH ×4 (09:41→17:36)
--- NOTE | 2019-06-17 17:03 | Hospitalist Progress Note ---
Date of Service June 17, 2019 Assessment & Plan (1) DKA (diabetic ketoacidoses): Present on admission with abdominal pain associated with Nausea and vomiting Glucose on admission 459 with anion Gap 21 Recent Hba1c 12.6 (On 06/16/19) He was starting on IV insulin drip with DKA protocol Received adequate IV hydration Anion gap closed Insulin drip was discontinued and transition to subq insulin [facility] on board for glycemic management Advised pt to monitor his BS and follow a healthy diabetic diet Abdominal Pain associated with Nausea and Vomiting Mostly related to DKA CT abd/pelvis showed mild wall thickening of the ascending colon, hepatic flexure and proximal transverse colon may be secondary to partial distention versus a mild nonspecific colitis. Surgery on board and no clinical indication for appendicitis or abdominal issues Tolerated diet Resolved Elevated Troponin Related to DKA CTA chest showed no evidence for pulmonary embolus. The lungs are clear Troponin on admission 0.817, then trending down to 0.70 EKG showed no ischemic changes Asymptomatic Elevate Lactic acid Related to DKA Lactic acid on admission 2.3 that trending down to 1.3 No signs of Infection --> No Abx Received IVF Resolved Tobacco abuse Nicotine patch PRN Counseling on smoking cessation DVT prophylaxis On Lovenox subcu CODE STATUS Full code Subjective Pt was seen and examined Lying in bed with no distress Pt said that he feels fine now He said that he does not have any abdominal pain He tolerated his diet He would like to go home today Denies any chest pain, palpitation, dizziness and SOB Physical Exam Physical Exam: General- No acute distress Head- atraumatic Eyes- PERRL, EOMI, ENT- oropharynx clear Neck- supple, no JVD Lungs- clear to auscultation Heart- regular rhythm; no murmur Abdomen- normal bowel sounds, soft, nontender Extremities- no calf tenderness Neuro- alert, oriented x 3; PERRL, EOMI; no facial palsy; no dysarthria Skin- warm & dry Results & Data ([facility]) Vital Signs (Past 12 Hours) Vital Signs Temp Pulse Pulse Resp BP BP Pulse Ox 06/17/19 16:00 36.6 C 64 16 136/69 97 06/17/19 15:43 70 06/17/19 11:43 37.1 C 77 19 109/55 L 97 06/17/19 08:30 36.9 C 76 18 99/60 L 96 06/17/19 05:10 36.7 C 74 16 101/58 L 96
--- NOTE | 2019-06-17 17:22 | Electrocardiogram Report ---
Test Reason : Blood Pressure : / mmHG Vent. Rate : 084 BPM Atrial Rate : 084 BPM P-R Int : 156 ms QRS Dur : 092 ms QT Int : 404 ms P-R-T Axes : 072 101 064 degrees QTc Int : 477 ms Normal sinus rhythm Possible Left atrial enlargement Rightward axis Borderline ECG No previous ECGs available Confirmed by Siddharth Navarro ([id number]) on 06/17/2019 5:22:23 PM Referred By: REFERRED SELF Confirmed By:Vern Navarro
[2019-06-18] MEDS ORDERED: INSULIN ASPART 100 UNITS/ML 3 ML PEN SC SCH
--- NOTE | 2019-06-20 08:22 | Discharge Summary ---
Date of Service June 17, 2019 Admission HPI Per Admitting Provider History obtained from patient, family, and records. Medical history significant for DM 1, ongoing tobacco abuse. 2 days history of upset stomach, with nausea and emesis. No fever, some chills. Good BM. Poor appetite. No chest pain, No cough. A little short of breath. Blood sugar noted to be 400s at home which is higher than usual 200s as per patient. IVF, IV insulin started at the ER for DKA. 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 Admission Exam Per Admitting Provider GENERAL: Slightly uncomfortable, episodic lethargy, looks older than stated age, no respiratory distress SKIN: Normal color, warm HEENT: [place] palpebral conjunctivae, no ptosis, dry buccal mucosa NECK : Supple, no tenderness CHEST : Decreased breath sounds, no tenderness HEART : RRR, no obvious murmurs ABDOMEN: Some distention, minimal hypogastric tenderness EXTREMITIES : No LE swelling/tenderness, no other conspicuous deformities noted NEUROLOGIC : Coherent, episodic lethargy, no facial asymmetry, no other gross focality Principal Diagnosis DKA (diabetic ketoacidoses): Diabetes Type 1 Abdominal Pain Elevated Troponin Elevate Lactic acid Tobacco abuse Discharge Exam General- No acute distress Head- atraumatic Eyes- PERRL, EOMI, ENT- oropharynx clear Neck- supple, no JVD Lungs- clear to auscultation Heart- regular rhythm; no murmur Abdomen- normal bowel sounds, soft, nontender Extremities- no calf tenderness Neuro- alert, oriented x 3; PERRL, EOMI; no facial palsy; no dysarthria Skin- warm & dry Discharge Data Allergies Allergy/AdvReac Type Severity Reaction Status Date / Time No Known Allergies Allergy Unverified 06/16/19 23:34 Consultations 06/16/19 22:47 ED Decision to Admit Stat 06/17/19 03:30 Consult General Surgery Routine Ordered Studies 06/16/19 23:31 CT abd pelvis IV con only Urgent CT angio chest PE protocol Urgent XR chest 1V portable HISTORY: weakness COMPARISON: None. FINDINGS: The lungs are clear. Cardiac silhouette is normal in size. No pleural effusions. No pneumothorax. IMPRESSION: No acute process. ACT 112: Negative or not required by law. Electronically signed by: Brent Downs M.D. 06/16/2019 10:11 PM Dictated: 06/16/192209 Transcribed: 06/16/192209 KUB HISTORY: vomiting COMPARISON: None. FINDINGS: The bowel gas pattern is unremarkable. There are no dilated loops of small bowel to suggest an obstruction. No renal calculi. No ureteral calculi. No pneumoperitoneum or pneumatosis. IMPRESSION: Unremarkable KUB. ACT 112: Negative or not required by law. Electronically signed by: Brent Downs M.D. 06/16/2019 10:12 PM Dictated: 06/16/192210 Transcribed: 06/16/192210 ABDOMEN AND PELVIS CT WITH IV CONTRAST CT DOSE: 632.40 mGy.cm HISTORY: Acute generalized abdominal pain abd pain TECHNIQUE: Multiaxial CT images of the abdomen and pelvis were performed following the IV administration of 117 cc of Optiray 320, A dose lowering technique was utilized adhering to the principles of ALARA. COMPARISON STUDY: CTA of the chest of same day FINDINGS: Clear lung bases. There is no pneumatosis or pneumoperitoneum identified. Imaged inferior cardiac chambers are unremarkable. Spleen, visualized pancreas, adrenal glands, gallbladder and liver appear unremarkable. Patency of the hepatic and portal veins. Kidneys, ureters and urinary bladder are unremarkable. Study is limited secondary to lack of enteric contrast and paucity of intra-abdominal fat. Aorta and IVC are unremarkable. No adenopathy identified. No bowel obstruction. There is mild wall thickening of the ascending colon, hepatic flexure and proximal transverse colon with partial distention. The appendix is not diagnostically visualized. There are a few scattered fluid- filled loops of nondilated small bowel noted. Trace free fluid within the abdomen and pelvis with mild mesenteric edema. Soft tissues are unremarkable. The bones appear intact. IMPRESSION: 1. No bowel obstruction. 2. Nonvisualization of the appendix. 3. Mild wall thickening of the ascending colon, hepatic flexure and proximal transverse colon may be secondary to partial distention versus a mild nonspecific colitis. 4. Trace free fluid within the abdomen and pelvis. ACT 112: Negative or not required by law. The above report was generated using voice recognition software. It may contain grammatical, syntax or spelling errors. Electronically signed by: Won Toro M.D. 06/17/2019 6:42 AM Dictated: 06/17/19636 Transcribed: 06/17/19636 CT angio chest PE protocol CT DOSE: HISTORY: Chest pain PE TECHNIQUE: Multiaxial CT images of the chest were performed following the intravenous administration of contrast to evaluate the pulmonary arteries. Maximal intensity projection images were also obtained. A dose lowering technique was utilized adhering to the principles of ALARA. COMPARISON STUDY: None. FINDINGS: There is a normal caliber thoracic aorta with no evidence for dissection. There is no evidence for pulmonary embolus. No pleural effusions. No pneumothorax. The liver and spleen are unremarkable. No mediastinal or hilar lymphadenopathy. The central airways are patent. The lungs are clear. IMPRESSION: No evidence for pulmonary embolus. The lungs are clear ACT 112: Negative or not required by law. The above report was generated using voice recognition software. It may contain grammatical, syntax or spelling errors. Electronically signed by: Romeo Lebron M.D. 06/17/2019 6:20 AM Dictated: 06/17/19618 Transcribed: 06/17/19618 Hospital Course (1) DKA (diabetic ketoacidoses): Present on admission with abdominal pain associated with Nausea and vomiting Glucose on admission 459 with anion Gap 21 Recent Hba1c 12.6 (On 06/16/19) He was starting on IV insulin drip with DKA protocol Received adequate IV hydration Anion gap closed Insulin drip was discontinued and transition to subq insulin [facility] on board for glycemic management Advised pt to monitor his BS and follow a healthy diabetic diet Abdominal Pain associated with Nausea and Vomiting Mostly related to DKA CT abd/pelvis showed mild wall thickening of the ascending colon, hepatic flexure and proximal transverse colon may be secondary to partial distention versus a mild nonspecific colitis. Surgery on board and no clinical indication for appendicitis or abdominal issues Tolerated diet Resolved Elevated Troponin Related to DKA CTA chest showed no evidence for pulmonary embolus. The lungs are clear Troponin on admission 0.817, then trending down to 0.70 EKG showed no ischemic changes Asymptomatic Elevate Lactic acid Related to DKA Lactic acid on admission 2.3 that trending down to 1.3 No signs of Infection --> No Abx Received IVF Resolved Tobacco abuse Nicotine patch PRN Counseling on smoking cessation DVT prophylaxis On Lovenox subcu CODE STATUS Full code Total Time Total Time Spent Total Time Spent (In Minutes): 35 minutes Total Time Includes: Examination of the Patient, Discharge Planning, Medication Reconciliation, Communication With Other Providers and Other Discharge Plan Discharge Items Patient Disposition: Home - Self-Care Reason For Visit: DKA, TROP ELEV Discharge Diagnosis: DKA (diabetic ketoacidoses): Diabetes Type 1 Abdominal Pain Elevated Troponin Elevate Lactic acid Tobacco abuse Activity: Resume your previous activity Non-emergency contact: Primary Care Provider Call non-emergency contact if: you have any medication questions Follow-up/Referrals: Romeo John MD [Primary Care Provider] - Diet: Carb Count or DM1 Addtl Attending Provider Instructions: Follow up with your primary care provider Dr John on 06/21 @ 2:55 PM Follow up with your consumer educator Continue monitor your blood sugar and bring your blood sugar log at your next appointment with your provider Follow up a healthy diabetes diet and limited concentrated sweet intake Increase your insulin to 24 units twice a day (starting tomorrow ) Seek medical attention if you develop any vomiting/nausea and abdominal pain Pending Studies at Discharge: No Stand-Alone Forms: My [facility] PLUQ, Smoking Cessation Medications and DC Order Prescriptions: Changed Novolin 70/30 U-100 Insulin 100 unit/mL (70-30) suspension 24 unit SUBCUT BID Qty: 0 RF: 0 Discharge Orders: Discharge Order (Routine); Ordered 06/17/19 Ordered By: Avtar Bhatt Admission Data Admit Date/Time: 06/16/19 23:36 Attending Provider: Avtar Bhatt Admit Provider: Dewayne Perez Primary Care Provider: Romeo John Other Providers: Dewayne Perez ; John Trujillo Other Interventions: Discharge Summary Assessment (RN) Last Done: 06/17/19 18:57 DC Date/Time DO NOT enter until pt leaves facility: 06/17/19 19:50
== END 2019-06-17 19:50 | disposition home or self-care (01) | DRG 639 ==
LOC: ED 21:01 → 2S 23:36